=== PATIENT | female | born 1960 | race Caucasian/White ===

== ENCOUNTER 2025-04-07 21:06 | Emergency (ER) | payer BC ==
[~2025-04-07] VITALS: Ht 167.6 cm; Wt 74.8 kg
[2025-04-07 22:20] LABS: PLATELET COUNT (AUTO) 203 K/uL (179-408); RED BLOOD CELL COUNT(AUTO) 4.09 MIL/uL (3.63-4.92); RED CELL DISTRIBUTION WIDTH 13.6 % (12.3-17.7); WHITE BLOOD COUNT (AUTO) 7.8 K/uL (3.8-11.8)
[2025-04-07 22:27] LABS: CREATININE 0.4 mg/dL (0.6-1.3); SODIUM SERUM 140 mmol/L (136-145); UREA NITROGEN, BLOOD 16 mg/dL (7-18)
[2025-04-07 22:33] LABS: ASPARTATE AMINOTRANSFERASE 11 U/L (15-37); TOTAL PROTEIN, SERUM 6.9 g/dL (6.4-8.2)
[2025-04-07] MEDS: IV NS 1000 ML 1,000 ML IV ONE (22:36)
[2025-04-08 00:40] VITALS: BP 122/82; O2SAT 99
== END 2025-04-08 00:41 | disposition home or self-care (01) ==
LOC: ER 21:13
DX: M96.831 Postprocedural hemorrhage of a musculoskeletal structure following other procedure (principal)
CPT/HCPCS: 99283; 96360; 80053; 85025; 85610; 85730; 36415; J7040; A4606; A4663